=== PATIENT | male | born 1950 ===

== ENCOUNTER 2022-04-13 07:38 | Day surgery (SDC) | payer MEDICARE ==
[2022-04-07 16:03] VITALS: BMI 21.6
[2022-04-13] MEDS ORDERED: PROPOFOL 20 ML ONE (09:04)
[2022-04-13] MEDS ORDERED: Fentanyl 100 MCG/2 ML VIAL ONE (09:05)
[2022-04-13] MEDS ORDERED: Ketorolac Tromethamine 30 MG/ML VIAL ONE (09:06)
[2022-04-13] MEDS ORDERED: Dexamethasone 4 mg/ml Vial ONE (09:06)
[2022-04-13] MEDS ORDERED: Ondansetron PF 4 MG/2 ML Vial ONE (09:06)
[2022-04-13] MEDS ORDERED: Bupivacaine PF 0.5% 30 ML VIAL ONE (09:08)
[2022-04-13] MEDS ORDERED: Neomycin-Polymyxin 1 ML AMP ONE (09:08)
[2022-04-13] MEDS ORDERED: CEFAZOLIN 2 GM VIAL ONE (09:49)
[2022-04-13] MEDS ORDERED: ePHEDrine Sulfate 50 MG/10 ML VIAL ONE (10:14)
[2022-04-13] MEDS ORDERED: Dexamethasone 20 MG/5 ML VIAL ONE (10:52)
== END 2022-04-13 13:20 | disposition home or self-care (01) ==
LOC: CSHSDC 07:38
PROVIDERS: ATTEND Podiatrist Foot & Ankle Surgery
PROC: 0SGK04Z Fusion of Right Tarsometatarsal Joint with Internal Fixation Device, Open Approach (ICD-10-PCS; principal; 2022-04-13)
DX: M20.11 Hallux valgus (acquired), right foot (principal); I51.9 Heart disease, unspecified; N52.9 Male erectile dysfunction, unspecified; Z79.899 Other long term (current) drug therapy
CPT/HCPCS: 28297; 73620; C1713 ×4; C1769; C1776 ×2; J1100; J1885; J2405; J2704; J3010; S0020